=== PATIENT | female | born 1970 | race Caucasian/White ===

== ENCOUNTER → 2017-08-22 | Outpatient (CLI) | payer MEDICAID | LOC: BRMIMAGING 10:33 | PROVIDERS: ATTEND Family Medicine | DX: M25.522 Pain in left elbow (principal); S52.502D Unspecified fracture of the lower end of left radius, subsequent encounter for closed fracture with routine healing; R53.83 Other fatigue; W19.XXXD Unspecified fall, subsequent encounter | CPT/HCPCS: 73080-PO ==